=== PATIENT | male | born 1965 | race Caucasian/White ===

== ENCOUNTER 2018-10-12 07:05 | Emergency (ER) | payer SELFPAY ==
[2018-10-12 07:18] VITALS: BP 146/113
--- NOTE | 2018-10-12 07:42 | UC ---
Throat Pain/Nasal Dominic HPI - HPI Summary HPI Summary: 5 DAYS AGO STARTED WITH A SCRATCHY THROAT. STATES HIS UVULA IS NOW SWOLLEN AND HE HAS A WHITE SPOT ON IT. IS HAVING POSTNASAL DRAINAGE AND SOME EAR PRESSURE. NO FEVER, NAUSEA/VOMITING. WANTS A STREP SWAB. - History of Current Complaint Chief Complaint: UCGeneralIllness Stated Complaint: SORE THROAT Time Seen by Provider: 10/12/18 07:20 Hx Obtained From: Patient Onset/Duration: Gradual Onset, Lasting Days, Still Present Severity: Moderate Pain Intensity: 7 Pain Scale Used: 0-10 Numeric Cough: None Associated Signs & Symptoms: Negative: Fever - Allergies/Home Medications Allergies/Adverse Reactions: Allergies Allergy/AdvReac Type Severity Reaction Status Date / Time No Known Allergies Allergy Verified 10/12/18 07:18 PMH/Surg Hx/FS Hx/Imm Hx Previously Healthy: Yes - Surgical History Surgical History: None - Family History Known Family History: Positive: Non-Contributory - Social History Alcohol Use: Weekly Substance Use Type: None Smoking Status (MU): Never Smoked Tobacco Review of Systems All Other Systems Reviewed And Are Negative: Yes Constitutional: Positive: Negative ENT: Positive: Sore Throat, Other - POST NASAL DRAINAGE Respiratory: Positive: Negative Cardiovascular: Positive: Negative Gastrointestinal: Positive: Negative Physical Exam Triage Information Reviewed: Yes Appearance: Well-Appearing, No Pain Distress, Well-Nourished Vital Signs: Initial Vital Signs Temp 97.1 F 10/12/18 07:14 Pulse 86 10/12/18 07:14 Resp 18 10/12/18 07:14 BP 146/113 10/12/18 07:14 Pulse Ox 100 10/12/18 07:14 Laboratory Tests 10/12/18 07:23 Group A Strep Rapid Negative Vital Signs Reviewed: Yes Eyes: Positive: Conjunctiva Clear ENT: Positive: Hearing grossly normal, TMs normal, Uvula midline - EDEMATOUS, Other - 2MM WHITE, SHALLOW ULCER WITH ERYTHEMATOUS RIM JUST ANTERIOR TO UVULA. Negative: Nasal congestion Neck: Positive: Supple, Nontender, No Lymphadenopathy Respiratory Exam: Normal Cardiovascular Exam: Normal Abdomen Description: Positive: Soft Musculoskeletal: Positive: No Edema Neurological: Positive: Alert Psychological: Positive: Age Appropriate Behavior Skin: Negative: Rashes Throat Pain/Nasal Course/Dx - Differential Dx/Diagnosis Provider Diagnosis: Uvulitis, Oral aphthous ulcer Discharge - Sign-Out/Discharge Documenting (check all that apply): Patient Departure All imaging exams completed and their final reports reviewed: No Studies - Discharge Plan Condition: Stable Disposition: HOME Prescriptions: predniSONE TAB* [Deltasone 20 MG TAB*] 40 mg PO DAILY #10 tab Patient Education Materials: Canker Sores (ED), Uvulitis (ED) Forms: *Work Release Referrals: [facility] [Outside] - If Needed Additional Instructions: STREP NEGATIVE. YOUR SYMPTOMS ARE LIKELY VIRALLY MEDIATED AND SHOULD RESOLVE ON THEIR OWN WITH TIME. NO INDICATION FOR ANTIBIOTICS AT PRESENT. WILL TREAT WITH PREDNISONE TO HELP WITH INFLAMMATION. SEEK FOLLOW-UP IF YOU ARE NOT IMPROVING OVER THE NEXT 1-2 WEEKS. REST, HYDRATE, OTC CHLORASEPTIC OR CEPACOL LOZENGES AND/OR IBUPROFEN FOR SORE THROAT NEEDED CALL THE NUMBER BELOW FOR ASSISTANCE IN ESTABLISHING WITH A PCP An additional resource available to assist in finding the appropriate physician for your health care needs is [facility] ([facility]). You may contact them by calling [phone]. - Billing Disposition and Condition Condition: STABLE Disposition: Home
== END 2018-10-12 07:42 | disposition home or self-care (01) ==
LOC: UCEAST 07:05
DX: K12.2 Cellulitis and abscess of mouth (principal); K12.0 Recurrent oral aphthae
CPT/HCPCS: 87651; 99202; G0463